=== PATIENT | female | born 1965 | race Caucasian/White ===

== ENCOUNTER → 2017-10-11 | Outpatient (CLI) | payer MEDICARE ==
[~2017-10-11] VITALS: Ht 172.7 cm; Wt 85.1 kg
[~2017-10-11] MED LIST: ASPI1TAB57 PO; CARD120C4 PO; CHLORHEXIDINE GLUCONATE 2 % 1 PACK (2 CLOTHS) TOPICAL PRN; CYAN100 PO; DEXTROSE 5% IN WATE 1000ML INJ 1,000 ML IV SCH; EFFE150C PO; FERR325T18 PO; FOLI1TAB6 PO; LACTATED RINGER'S 1000 ML IV PRN; LEVE500 PO; LIDOCAINE HCL 1% PF 5 ML SYRINGE OTHER ONE; LORA-474 PO; METOPROLOL TARTRATE 25 MG TAB PO PRN; MILK140C PO; MULT-65 PO; OXCA300T PO; POVIDONE IODINE 5% (ANTISEPSIS KIT) 4 APPLICATIONS EACH NARE PRN; PROPOFOL 200 MG/20 ML AMP IV ONE; REST30CA PO; SM M250T PO; SODIUM CHLORID 0.9% 500 ML IV PRN; TOPI25 PO; ZANT150T2 PO
--- NOTE | 2017-10-11 08:03 | GIPROC ---
[facility] [address] [facility]. [facility], [address] COLONOSCOPY PROCEDURE REPORT EXAM DATE: 10/11/2017 PATIENT NAME: Quita العراقي MR #: [id number] BIRTHDATE: 1965 ENDOSCOPIST: Bev Marquez MD ORDER #: [id number] NAILER MACHINE: Azra Carbajal and Rossana Katz STATUS: outpatient INDICATIONS: The patient is a 52 yr old female here for a colonoscopy due to screening, occult blood PROCEDURE PERFORMED: Total Colonoscopy MEDICATIONS: See Anesthesia Record ESTIMATED BLOOD LOSS: None CONSENT: The patient understands the risks and benefits of the procedure and understands that these risks include, but are not limited to: sedation, allergic reaction, infection, perforation and/or bleeding. Alternative means of evaluation and treatment include, among others: physical exam, x-rays, and/or surgical intervention. The patient elects to proceed with this endoscopic procedure. DESCRIPTION OF PROCEDURE: checked for proper function. Hand hygiene and appropriate measures for infection prevention was taken. After the risks, benefits and alternatives of the procedure were thoroughly explained, Informed consent was verified, confirmed and timeout was successfully executed by the treatment team. A digital exam was performed. The endoscope was introduced through the anus and advanced to the cecum, which was identified by the appendiceal orifice, tri-radiate valve, and ileocecal valve. The prep quality was good. The instrument was then slowly withdrawn as the colon was fully examined. There were no mucosal abnormalities noted with the cecum, ascending colon, transverse colon, descending colon, sigmoid, or rectum. The scope was then completely withdrawn from the patient and the procedure terminated. ADVERSE EVENTS: There were no complications. WITHDRAWL TIME: 6 minutes DEGREE OF DIFFICULTY: IMPRESSIONS: Normal Colon RECOMMENDATIONS: Home PATIENT CONDITION: Stable DISPOSITION: Home RECALL: Repeat colonoscopy 10 years Bev Marquez MD eSigned: Bev Marquez MD 10/11/2017 8:03 AM cc: Dr. Kim PATIENT NAME: Quita العراقي MR#: [id number]
[2017-10-11 08:41] VITALS: BP 108/73; PULSE 64; RESP 16; TEMP 97.4; O2SAT 96
--- NOTE | 2017-10-11 12:55 | EKG ---
Date Performed: 10/11/2017 Time Performed: 06:30:34 PTAGE: 52 years EKG: SINUS BRADYCARDIA BORDERLINE ECG NO PREVIOUS TRACING DOCTOR: Gonsalo Cordon Interpretating Date/Time 10/11/2017 12:53:59
== END ==
LOC: HSDC 05:59
PROVIDERS: ATTEND Colon & Rectal Surgery
DX: Z12.11 Encounter for screening for malignant neoplasm of colon (principal); Z83.71 Family history of colonic polyps; I47.1 Supraventricular tachycardia; K21.9 Gastro-esophageal reflux disease without esophagitis; Z85.72 Personal history of non-Hodgkin lymphomas
CPT/HCPCS: 93005